=== PATIENT | male | born 1955 | race Caucasian/White ===

== ENCOUNTER 2019-08-30 17:04 | Emergency (ER) | payer MEDICARE, SELFPAY ==
[2019-08-30 17:09] VITALS: BP 163/104; PULSE 103; RESP 16; TEMP 36.7; O2SAT 96; BMI 35.9
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
[2019-08-30 18:14] VITALS: BP 143/78; PULSE 90; RESP 18; TEMP 36.4; O2SAT 92
== END 2019-08-30 18:24 | disposition home or self-care (01) ==
PROVIDERS: Emergency Provider Physician Assistant; PCP Family Medicine
DX: Z76.0 Encounter for issue of repeat prescription (principal); F17.200 Nicotine dependence, unspecified, uncomplicated
CPT/HCPCS: 99281

== ENCOUNTER → 2019-09-26 14:13 | Outpatient (BNVA) | payer MEDICARE, SELFPAY | PROVIDERS: PCP Family Medicine; Visit Provider Psychiatry & Neurology Psychiatry | DX: F33.2 Major depressive disorder, recurrent severe without psychotic features (principal); F41.1 Generalized anxiety disorder; F60.9 Personality disorder, unspecified | CPT/HCPCS: 99204 ==

== ENCOUNTER → 2019-10-02 11:08 | Outpatient (BNVA) | payer MEDICARE, SELFPAY | PROVIDERS: PCP Family Medicine; Visit Provider Psychiatry & Neurology Psychiatry | DX: F60.9 Personality disorder, unspecified (principal); F41.1 Generalized anxiety disorder; F33.2 Major depressive disorder, recurrent severe without psychotic features | CPT/HCPCS: 99213 ==

== ENCOUNTER 2019-10-11 17:57 | Emergency (ER) | payer MEDICARE, SELFPAY ==
--- NOTE | 2019-10-11 18:04 | XRR_ITS ---
PROCEDURE INFORMATION: Exam: XR Chest, 1 View Exam date and time: 10/11/2019 6:32 PM Age: 64 years old Clinical indication: Shortness of breath; Additional info: SOB TECHNIQUE: Imaging protocol: XR of the chest Views: 1 view. COMPARISON: No relevant prior studies available. FINDINGS: Lungs: Unremarkable. No consolidation. Pleural space: Unremarkable. No pleural effusion. No pneumothorax. Heart/Mediastinum: Unremarkable. No cardiomegaly. Bones/joints: Mild dextroscoliosis. Mild thoracic spondylosis. XR/XR chest 1V portable 19752 IMPRESSION: No acute findings.
--- NOTE | 2019-10-11 18:05 | ECG_ITS ---
Measurements Intervals [place] Rate: 101 P: 12 MO: 164 QRS: 58 QRSD: 105 T: 16 QT: 338 QTc: 438 SINUS TACHYCARDIA ABNORMAL RHYTHM ECG No previous ECG available for comparison Electronically Signed On 10-11-2019 20:22:40 CDT by Mando Coats M.D. [email or web address]
[2019-10-11 18:07] VITALS: BP 154/98; PULSE 106; RESP 18; TEMP 37.1; O2SAT 97; BMI 30.5
[2019-10-11 18:28] VITALS: BP 154/98; PULSE 104; RESP 18; O2SAT 98
--- NOTE | 2019-10-11 18:31 | PC.NURSE ---
Dr Rodríguez at bedside. CXR performed at bedside.
[2019-10-11 18:32] LABS: Basophils % 0.3 %; Eosinophils # 0.1 10^3/uL (0.0-0.8); Hematocrit 40.9 % (42.0-52.0); Hemoglobin 13.5 g/dL (11.7-16.6); Lymphocytes # 1.3 10^3/uL (0.8-4.8); Lymphocytes % 21.3 %; Mean Corpuscular Volume 87.8 fL (80-94); Mean Platelet Volume 9.6 fL (7.4-10.4); Monocytes # 0.4 10^3/uL (0.2-0.9); Monocytes % 6.3 %; Neutrophils # 4.4 10^3/uL (1.8-7.7); Neutrophils % 70.8 %; Nucleated Red Blood Cells % 0 %; Platelet Count 185 10^3/cmm (130-400); Red Blood Count 4.66 10^6/uL (4.1-5.3); White Blood Count 6.2 10^3/uL (4.0-10.0)
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
[2019-10-11] MEDS: haloperidol inj 5 mg/mL INJ 1 mL 2 MG IVP (18:45)
[2019-10-11 18:47] VITALS: BP 138/82; PULSE 103; RESP 18; O2SAT 96
--- NOTE | 2019-10-11 18:48 | PC.NURSE ---
Pt unable to urinate at this time. States he just voided 45 minutes ago.
[2019-10-11 18:58] LABS: Lithium 0.1 mmol/L (0.6-1.2)
[2019-10-11 19:03] LABS: Troponin(5th) Baseline 14 ng/mL (0-15)
[2019-10-11 19:11] LABS: Alanine Aminotransferase 18 U/L (0-41); Albumin Level 4.3 g/dL (3.5-5.2); Alkaline Phosphatase 112 IU/L (40-130); Anion Gap 22.2 (5-19); Aspartate Amino Transferase 19 U/L (0-40); Blood Urea Nitrogen 11 mg/dL (8-23); Calcium 9.9 mg/dL (8.5-10.5); Carbon Dioxide 20 mmol/L (22-29); Chloride 93 mmol/L (98-107); Globulin 3.7 g/dL (1.3-4.6); Glucose 491 mg/dL (65-115); NT Pro B Type Natriuretic Pept 32 pg/mL (0-125); Osmolality Calculated 290 mOsm/kg (285-295); Potassium 4.2 mmol/L (3.5-5.1); Sodium 131 mmol/L (136-145); Total Bilirubin 0.6 mg/dL (0.15-1.2)
[2019-10-11 19:16] LABS: Acetaminophen < 5.0 ug/mL (10-30); Alcohol Level < 10 mg/dL (0-10); Salicylate < 0.3 mg/dL (3-10)
[2019-10-11] MEDS: insulin regular-human 100 units/1 mL 12 UNIT IVP (19:46)
[2019-10-11 20:40] LABS: Add Urine Microscopic? NO; Protein Urine Neg (Negative); Specific Gravity, Urine 1.015 (1.005-1.030); Urine Appearance Clear (CLEAR); Urine Color Yellow (Yellow); pH Urine 5 (5-7)
[2019-10-11 20:41] LABS: Bilirubin Urine Neg (NEGATIVE); Blood Urine Neg (Negative); Glucose Urine UA 4+ (Normal); Ketones Urine 2+ (Negative); Leukocyte Esterase Urine Negative (Negative); Nitrate Urine Negative (Negative); Urobilinogen Urine Norm (Negative)
[2019-10-11 20:45] LABS: Amphetamines Screen Urine Negative (Negative); Barbiturates Screen Urine Negative (Negative); Benzodiazepines Screen Urine Negative (Negative); Cocaine Screen Urine Negative (Negative); Opiate Screen Urine Negative (Negative); PCP Screen Urine Negative (Negative); THC Screen Urine Negative (Negative)
[2019-10-11 21:05] LABS: Troponin 5 2HR 14.28 ng/mL (0-15); Troponin 5 2HR Delta 0.28 ABS# (0-10)
[2019-10-11 21:40] VITALS: BP 123/72; PULSE 94; RESP 19; O2SAT 99
== END 2019-10-11 21:41 | disposition home or self-care (01) ==
PROVIDERS: Emergency Medicine; Emergency Provider Emergency Medicine; PCP Nurse Practitioner Family
DX: E11.65 Type 2 diabetes mellitus with hyperglycemia (principal); F41.9 Anxiety disorder, unspecified; R00.0 Tachycardia, unspecified; R06.00 Dyspnea, unspecified; F33.2 Major depressive disorder, recurrent severe without psychotic features; F60.9 Personality disorder, unspecified; Z79.84 Long term (current) use of oral hypoglycemic drugs; Z87.891 Personal history of nicotine dependence
CPT/HCPCS: 12345; 71045; 80053; 80178; 80306; 80307; 81003; 83880; 84484; 85025; 85378; 93005; 96374; 96375; 99283; 99284; A9270; J1630; J1815